=== PATIENT | female | born 1975 | race Caucasian/White ===

== ENCOUNTER → 2019-11-03 | Outpatient (CLI) | payer OTHER, BC ==
[2019-11-03 10:05] VITALS: BP 126/86; PULSE 82; RESP 18; TEMP 97.9
--- NOTE | 2019-11-03 10:57 | P.HPOB ---
History of Present Illness H&P Date: 11/03/19 Chief Complaint: The patient is here for her routine gynecologic exam and ma mmogram. This is a 44-year-old with an LMP of 09/28/2019. The patient is status post tubal ligation. The patient is here to establish with this office. It has been about 5 years since her last pelvic exam. During the past 1 year, she states her periods have become slightly less frequent and are about every 5 weeks. They also have gotten heavier, but shorter. They are typically lasting about 3 days with heavy flow and she can change her protection up to every 1 hour during the heavy times. She has also passed blood clots. Tampons alone typically cannot handle the heavy days. She has experienced some hot flashes for more than one year. Review of Systems The patient's weight has been stable over the last year. She denies respiratory, cardiac, or G.I. problems. Past Medical History Past Medical History: GERD/Reflux Additional Past Medical History / Comment(s): OBESITY. Seasonal ALLERGIES. 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 History of Any Multi-Drug Resistant Organisms: None Reported Past Surgical History: Bariatric Surgery, Section, Cholecystectomy, Hernia Repair, Tubal Ligation Additional Past Surgical History / Comment(s): EXP LAP. Multiple abdominal wall hernia repairs. 3. Gastric bypass surgery. 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 - Past Family History Mother Family Medical History: Cancer Additional Family Medical History / Comment(s): Leukemia. Father Family Medical History: AFIB Brother(s) Family Medical History: Myocardial Infarction ([place]) Medications and Allergies Home Medications Medication Instructions Recorded Confirmed Type Multivitamin with Iron [Daily 1 tab PO DAILY 06/07/15 11/03/19 History Multivitamin with Iron] Omeprazole [PriLOSEC] 10 mg PO DAILY 11/05/16 11/03/19 History Ascorbic Acid [Vitamin C] 500 mg PO DAILY 11/03/19 11/03/19 History Cetirizine HCl [Zyrtec] 10 mg PO DAILY PRN 11/03/19 11/03/19 History Cyanocobalamin [Vitamin B-12] 500 mcg PO DAILY 11/03/19 11/03/19 History Ginkgo Biloba 500 mg PO DAILY 11/03/19 11/03/19 History Loratadine [Claritin] 10 mg PO DAILY PRN 11/03/19 11/03/19 History Magnesium 200 mg PO DAILY 11/03/19 11/03/19 History Allergies Allergy/AdvReac Type Severity Reaction Status Date / Time Sulfa (Sulfonamide Allergy Swelling Verified 11/03/19 10:05 Antibiotics) Exam Vital Signs Temp Pulse Resp BP Pulse Ox 11/03/19 10:02 97.9 F 82 18 126/86 100 Intake and Output 11/02/19 11/03/19 11/03/19 22:59 06:59 14:59 Other: Weight 133.356 kg Height 5 feet 9 inches, weight 294 pounds, BMI 43.4. This is a well-developed well-nourished heavyset white female who is alert and oriented times 3 in no acute distress. HEENT: Within normal limits. NECK: Supple without mass or thyromegaly. CHEST AND LUNGS: Clear to auscultation. HEART: Regular rate and rhythm. BREASTS: Are without mass or discharge. AXILLARY EXAM: Negative for adenopathy. BACK: Negative for CVA tenderness. ABDOMEN: Soft, obese, nontender, without palpable masses. PELVIC EXAM: Normal external genitalia. Cervix and vagina appear normal. There is no unusual discharge. There is no evidence of prolapse. The uterus is midposition, nongravid size and nontender. There are no palpable adnexal masses or tenderness. Bimanual examination is somewhat limited secondary to her size. RECTAL EXAM: negative for mass or tenderness and is negative for occult blood. EXTREMITIES: Nontender. IMPRESSION: 1. 44-year-old female with mild hypermenorrhea and normal gynecologic exam. 2. Previous tubal sterilization. PLAN: 1. Pap smear was performed. 2. Self breast awareness was discussed with the patient. 3. Screening mammogram will be done today. 4. The patient will keep a menstrual calendar. We will have a trial of meclofenamate sodium 100 mg by mouth 3 times a day when necessary for heavy menstrual flow up to 6 days per cycle. The electronic prescription will be sent to [facility] in [place]. 5. If she is not having significant improvement, she was instructed to call and we will consider other options including endometrial ablation. 6. She was advised to return in one year for her annual well woman exam and as needed.
--- NOTE | 2019-11-05 13:47 | MM ---
Reason for exam: screening (asymptomatic). Last mammogram was performed 5 years and 9 months ago. Physical Findings: A clinical breast exam by your physician is recommended on an annual basis and results should be correlated with mammographic findings. MG Screening Mammo w CAD Bilateral CC and MLO view(s) were taken. Prior study comparison: January 18, 2014, bilateral digital screening mammo w/CAD. March 31, 2002, bilateral diagnostic mammogram. The breast tissue is almost entirely fat. Stable benign calcifications. There is no discrete abnormality. No significant changes when compared with prior studies. ASSESSMENT: Benign, BI-RAD 2 RECOMMENDATION: Routine screening mammogram of both breasts in 1 year.
== END | disposition home or self-care (01) ==
LOC: WWCWWP 09:48
PROVIDERS: ATTEND Obstetrics & Gynecology
DX: Z12.31 Encounter for screening mammogram for malignant neoplasm of breast (principal)
CPT/HCPCS: 77067

== ENCOUNTER → 2019-12-01 | Outpatient (CLI) | payer BC ==
--- NOTE | 2019-12-01 17:36 | CT ---
EXAMINATION TYPE: CT lower extremity LT wo con DATE OF EXAM: 12/01/2019 COMPARISON: None HISTORY: Left sided Anterior foot pain without trauma CT DLP: 315.7 mGycm Automated exposure control for dose reduction was used. The graft technique: 3-D reconstructed images a separate computer are presented by the technologist. 2-D reconstructed images in the coronal and s agittal plane are presented. Axial plane images were obtained at 2 mm thick sections. Bone and soft t issue windows are reviewed. FINDINGS: No acute fractures are evident. No suspicious areas to suggest fracture evident. Plantar and Achilles tendon calcaneal heel spurs are noted. No soft tissue abnormalities evident. There may be some degen erative change near the hindfoot joint spaces. IMPRESSION: 1. NO SUSPICIOUS ACUTE OSSEOUS ABNORMALITY. 2. THERE MAY BE SOME MILD DEGENERATIVE JOINT CHANGES WITHIN THE HINDFOOT JOINT SPACES
== END | disposition home or self-care (01) ==
LOC: RADCTMAIN 12:22
PROVIDERS: ATTEND Podiatrist Foot & Ankle Surgery
DX: S92.202 Fracture of unspecified tarsal bone(s) of left foot (principal)

== ENCOUNTER → 2020-12-07 | Outpatient (CLI) | payer BC ==
[2020-12-07 11:08] VITALS: BP 105/68; PULSE 110; RESP 18; TEMP 98.4
--- NOTE | 2020-12-07 12:57 | P.HPOB ---
History of Present Illness H&P Date: 12/07/20 Chief Complaint: The patient is here for her routine gynecologic exam and ma mmogram. This is a 45-year-old with an LMP of 11/12/2020. The patient is status post tubal ligation. She has been treated for menorrhagia with meclofenamate sodium. She used this during her menstrual periods over the past year with no significant improvement. Menstrual periods are typically lasting 7-8 days with 4-5 days of heavier flow. On the heavy days she has to change her pad about every 2 hours. She sometimes passes large blood clots the size of her palm. She often passes large clots into the toilet. She does have mild cramping with her menstrual periods and this is not a major problem for her. She also has been experiencing vulvar irritation especially after her menstrual periods and excess may be related to the pads that she has to use and change frequently. She denies any significant discharge or odor. She wonders if this is related to some type of yeast infection. Review of Systems The patient has lost 34 pounds over the last year. She denies respiratory, cardiac, or G.I. problems. Past Medical History Past Medical History: GERD/Reflux Additional Past Medical History / Comment(s): OBESITY. Seasonal ALLERGIES. 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 History of Any Multi-Drug Resistant Organisms: None Reported Past Surgical History: Bariatric Surgery, Section, Cholecystectomy, Hernia Repair, Tubal Ligation Additional Past Surgical History / Comment(s): EXP LAP. Multiple abdominal wall hernia repairs. 3. Gastric bypass surgery. Past Anesthesia/Blood Transfusion Reactions: No Reported Reaction Past Psychological History: No Psychological Hx Reported Smoking Status: Former smoker Past Alcohol Use History: Occasional (0-1 month) Additional Past Alcohol Use History / Comment(s): Started smoking at age 10, quit at age 32 Past Drug Use History: None Reported Additional History: She has been since 2003. 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 - Past Family History Mother Family Medical History: Cancer Additional Family Medical History / Comment(s): Leukemia. Father Family Medical History: AFIB Brother(s) Family Medical History: Myocardial Infarction ([place]) Medications and Allergies Home Medications Medication Instructions Recorded Confirmed Type Multivitamin with Iron [Daily 1 tab PO DAILY 06/07/15 12/07/20 History Multivitamin with Iron] Omeprazole [PriLOSEC] 10 mg PO DAILY PRN 11/05/16 12/07/20 History Ascorbic Acid [Vitamin C] 500 mg PO DAILY 11/03/19 12/07/20 History Cetirizine HCl [Zyrtec] 10 mg PO DAILY PRN 11/03/19 12/07/20 History Cyanocobalamin [Vitamin B-12] 500 mcg PO DAILY 11/03/19 12/07/20 History Ginkgo Biloba 500 mg PO DAILY 11/03/19 12/07/20 History Loratadine [Claritin] 10 mg PO DAILY PRN 11/03/19 12/07/20 History Magnesium 200 mg PO DAILY 11/03/19 12/07/20 History Meclofenamate Sodium 100 mg PO TID PRN #30 capsule 11/03/19 12/07/20 Rx Phentermine HCl 37.5 mg PO DAILY 12/07/20 12/07/20 History Allergies Allergy/AdvReac Type Severity Reaction Status Date / Time Sulfa (Sulfonamide Allergy Swelling Verified 12/07/20 11:01 Antibiotics) Exam Vital Signs Temp Pulse Resp BP Pulse Ox 12/07/20 11:04 98.4 F 110 H 18 105/68 95 Intake and Output 12/06/20 12/07/20 12/07/20 22:59 06:59 14:59 Other: Weight 117.934 kg Height 5 feet 9 inches, weight 260 pounds, BMI 38.4. This is a well-developed well-nourished heavyset white female who is alert and oriented times 3 in no acute distress. HEENT: Within normal limits. NECK: Supple without mass or thyromegaly. CHEST AND LUNGS: Clear to auscultation. HEART: Regular rate and rhythm. BREASTS: Are without mass or discharge. AXILLARY EXAM: Negative for adenopathy. BACK: Negative for CVA tenderness. ABDOMEN: Soft, nontender, without palpable masses. PELVIC EXAM: External genitalia reveals mild generalized erythema without excoriation or ulceration. There are no focal lesions. Cervix and vagina appear normal but there is small whitish thick discharge without odor. There is no evidence of prolapse. The uterus is midposition, nongravid size and nontender. There are no palpable adnexal masses or tenderness. The bimanual examination is somewhat limited secondary to her size. RECTAL EXAM: negative for mass or tenderness and is negative for occult blood. EXTREMITIES: Nontender. IMPRESSION: 1. 45-year-old female who is status post tubal ligation who is experiencing menorrhagia without significant improvement with meclofenamate sodium. 2. Generalized vulvar erythema consistent with nonspecific vulvitis with small amount of thick vaginal discharge. Differential diagnosis will include Erinn vaginitis, bacterial vaginosis and nonspecific vulvar dermatitis. Physiologic discharge is also possible. PLAN: 1. Pap smear was deferred since she had a normal one on 11/03/2019. 2. Self breast awareness was discussed with the patient. 3. Screening mammogram will be done today. 4. Affirm vaginitis panel was obtained from the vagina to check for Erinn, Gardnerella, and Trichomonas. If this is negative consider treatment with Kenalog cream to the external genitalia when necessary. 5. We have had a long discussion regarding her menorrhagia and we have also discussed possible options including oral contraception, Mirena IUD and endometrial ablation. Information on endometrial ablation in the form of the ACOG FAQ handout was given to the patient. Pelvic ultrasound was recommended and the order slip was given to the patient for this. If this is unremarkable she will let me know if she would like to proceed with a referral for an endometrial ablation. 6. She was advised to return in one year for her annual well woman exam and as needed.
--- NOTE | 2020-12-08 09:51 | P.PN ---
Progress Note - Text Progress Note Date: 12/08/20 I have called the patient to notify her of the negative Affirm vaginitis panel results that was negative for yesi, gardnerella, and trichomonas on 12/07/20. For the vulvar irritation I will prescribe Kenalog 0.1% cream BID prn, 30g, 1 refill. The electronic prescription will be sent to [facility] in [place]. She is scheduled for a pelvic US.
--- NOTE | 2020-12-08 14:10 | MM ---
Reason for exam: screening (asymptomatic). Last mammogram was performed 1 year and 1 month ago. Physical Findings: A clinical breast exam by your physician is recommended on an annual basis and results should be correlated with mammographic findings. MG Screening Mammo w CAD Bilateral CC and MLO view(s) were taken. Prior study comparison: November 03, 2019, bilateral MG screening mammo w CAD. There are scattered fibroglandular densities. No significant changes when compared with prior studies. ASSESSMENT: Negative, BI-RAD 1 RECOMMENDATION: Routine screening mammogram of both breasts in 1 year.
== END | disposition home or self-care (01) ==
LOC: WWCWWP 10:49
PROVIDERS: ATTEND Obstetrics & Gynecology
DX: Z12.31 Encounter for screening mammogram for malignant neoplasm of breast (principal)
CPT/HCPCS: 77067

== ENCOUNTER → 2020-12-26 | Outpatient (CLI) | payer BC ==
--- NOTE | 2020-12-26 10:05 | US ---
EXAMINATION TYPE: US pelvis complete transvag DATE OF EXAM: 12/26/2020 COMPARISON: NONE CLINICAL HISTORY: N92.0 MENORRHAGIA, large body habitus TECHNIQUE: Transvaginal (TV) and Transabdominal (TA) Date of LMP: 12-13-20 EXAM MEASUREMENTS: Uterus: 11.4 x 4.2 x 5.9 cm Endometrial Stripe: 1.1 cm Right Ovary: not visualized Left Ovary: 3.2 x 2.8 x 2.3 cm 1. Uterus: Anteverted, measures large 2. Endometrium: wnl 3. Right Ovary: Obscured by overlying bowel gas 4. Left Ovary: dominant follicle measuring 2.3 x 2.0 x 2.0cm 5. Bilateral Adnexa: wnl 6. Posterior cul-de-sac: wnl IMPRESSION: 1. Enlarged uterus of uncertain etiology. No distinct mass appreciated. 2. Dominant follicle left ovary. This likely reflects a functional ovarian cyst. This could be confir med with follow-up study in 6 weeks.
--- NOTE | 2020-12-27 09:19 | P.PN ---
Progress Note - Text Progress Note Date: 12/27/20 OUTPATIENT FOLLOW-UP NOTE TEST(S)/RESULTS: Pelvic ultrasound done on 12/26/2020 shows a mildly enlarged uterus of uncertain etiology. No distinct mass is appreciated in the uterus. There is a follicular-type left ovarian cyst measuring 2.3 x 2.0 x 2.0 cm. METHOD OF NOTIFICATION: The patient was notified by phone. PATIENT COMMENTS: The patient states she does have some cramps with her menstrual periods. She would like to proceed with endometrial ablation. DIAGNOSIS: Menorrhagia with mildly enlarged uterus with no discrete uterine fibroids by ultrasound. Left ovarian follicular-type cyst measuring 2.3 cm. DISCUSSION: She would like to proceed with endometrial ablation. She understands that failure rates do increase with enlarged and uterus. The uterine dimensions seem mildly enlarged. She will be referred to Dr. Callahan for possible endometrial ablation. I will let patient discuss this with Dr. Callahan to determine if an endometrial ablation will be the best approach. We will plan on repeating the pelvic ultrasound an approximate 6-8 weeks and I have discussed this with the patient. The order slip will be mailed to the patient. PLAN: Referral to Dr. Callahan for possible endometrial ablation. Repeat ultrasound in 6-8 weeks.
== END | disposition home or self-care (01) ==
LOC: RADUSWWP 08:51
PROVIDERS: ATTEND Obstetrics & Gynecology
DX: N85.2 Hypertrophy of uterus (principal)
CPT/HCPCS: 76830; 76856

== ENCOUNTER 2021-02-13 07:48 | Day surgery (SDC) | payer BC ==
[2021-02-10 09:08] VITALS: BMI 38.2
[~2021-02-13 07:48] MED LIST: DEXAMETHASONE SOD PHOSPHATE 4 MG/ML 1 ML VIAL IV ONE; HYDROmorphone 0.5 MG/0.5 ML SYRINGE IVP PRN; LACTATED RINGERS 1,000 ML IV SCH; ONDANSETRON 4 MG/2 ML VIAL IVP ONE; Pre Op ABX Message 1 EACH MISC MISCELLANE ONE
[2021-02-13] MEDS ORDERED: LIDOCAINE 1% (10MG/ML) FOR IV START INTRADERMA ONE (08:38)
[2021-02-13 08:44] LABS: Basophils % (A) 1 %; Eosinophils # (A) 0.1 k/uL (0-0.7); Eosinophils % (A) 3 %; HCT 38.4 % (34.0-46.0); HGB 12.7 gm/dL (11.4-16.0); Lymphocytes # (A) 1.7 k/uL (1.0-4.8); Lymphocytes % (A) 37 %; MCH 29.2 pg (25.0-35.0); MCHC 32.9 g/dL (31.0-37.0); MCV 88.5 fL (80.0-100.0); Mean Platelet Volume 6.8; Monocytes # (A) 0.2 k/uL (0-1.0); Monocytes % (A) 4 %; Neutrophils # (A) 2.6 k/uL (1.3-7.7); Neutrophils % (A) 55 %; Platelet Count 370 k/uL (150-450); RBC 4.34 m/uL (3.80-5.40); RDW 13.1 % (11.5-15.5); WBC 4.7 k/uL (3.8-10.6)
[2021-02-13] MEDS ORDERED: PROPOFOL 10 MG/ML 20 ML VIAL IV ONE (08:52)
[2021-02-13] MEDS ORDERED: KETOROLAC 15 MG/ML 1 ML VIAL ONE (08:52)
[2021-02-13] MEDS ORDERED: fentaNYL (PF) 50 MCG/ML 2 ML AMP ONE (08:52)
[2021-02-13] MEDS ORDERED: LIDOCAINE 1% INJ 10MG/ML (20 ML MDV) ONE (08:52)
[2021-02-13] MEDS ORDERED: MIDAZOLAM 2 MG/2 ML VIAL ONE (08:52)
[2021-02-13] MEDS ORDERED: SILVER NITRATE APPLICATOR 1 EACH STICK..EA. TOPICAL ONE (09:24)
--- NOTE | 2021-02-13 09:36 | P.OP ---
Date of Procedure: 02/13/21 Preoperative Diagnosis: Menorrhagia, dysmenorrhea Postoperative Diagnosis: Same, essentially normal-appearing endometrial cavity Procedure(s) Performed: Hysteroscopy, NovaSure endometrial ablation Surgeon: Chelsie Callahan Estimated Blood Loss (ml): 10 IV fluids (ml): 600 Urine output (ml): 200 Pathology: none sent Condition: stable Disposition: PACU Description of Procedure: Patient is brought to the operating suite where a general anesthetic is administered without difficulty. Urine hCG is negative. The appropriate timeout is performed to assure proper patient and procedural identification. Examination under anesthesia reveals a small anteverted uterus, negative adnexa bilaterally. Bladder is drained for 200 mL of clear yellow urine. The cervix, perineal body, and lower abdomen are all prepped and draped in usual sterile fashion. Weighted speculum was placed into the vagina. Anterior lip of the cervix is grasped with a double-tooth tenaculum. Uterus sounds to a depth of 9 cm in the anteverted position. Cervix is gently and systematically dilated using Hanks dilators. Hysteroscope was introduced and the cavity is distended with sterile saline. The cavity appears normal to inspection, no polyps fibroids or defects. Hysteroscope was removed. NovaSure wand is then placed and seated. A length of 6.0 cm, width of 3.0 cm is chosen. The machine is properly enabled. For 54 seconds and a power of 99 W the procedure is carried out. When completed, the wand is reduced and removed. The hysteroscope was once again placed and the cavity is noted to be uniformly blanched. All instrumentation is removed from the vagina. Cervix is clean and dry. All sponge needle and enhancement counts are correct. Patient is given Toradol prior to leaving the operative suite. She is taken to recovery room in very good condition with a blood pressure of 110/67, pulse 69, 100% O2 saturation. Patient will follow-up with me in the office in 2 weeks. Written instructions are provided.
[2021-02-13 09:41] VITALS: TEMP 97.8
[2021-02-13 10:06] VITALS: RESP 16
[2021-02-13 10:33] VITALS: BP 102/49; PULSE 81
== END 2021-02-13 10:59 | disposition home or self-care (01) ==
LOC: OR 07:48
PROVIDERS: ATTEND Obstetrics & Gynecology
DX: N92.0 Excessive and frequent menstruation with regular cycle (principal); N94.6 Dysmenorrhea, unspecified; K21.9 Gastro-esophageal reflux disease without esophagitis; E66.9 Obesity, unspecified; J45.909 Unspecified asthma, uncomplicated; Z98.84 Bariatric surgery status; Z79.899 Other long term (current) drug therapy; Z88.2 Allergy status to sulfonamides; Z82.49 Family history of ischemic heart disease and other diseases of the circulatory system; Z80.6 Family history of leukemia; Z80.9 Family history of malignant neoplasm, unspecified; Z87.891 Personal history of nicotine dependence; Z68.39 Body mass index [BMI] 39.0-39.9, adult
CPT/HCPCS: 81025; 85025; 58563; J2250; J1100; J2405; J2001; J3010; J1885; J2704

== ENCOUNTER → 2021-03-06 | Outpatient (CLI) | payer BC | END | disposition home or self-care (01) | LOC: LABWHC1 09:28 | PROVIDERS: ATTEND Dermatology | DX: L30.9 Dermatitis, unspecified (principal) | CPT/HCPCS: 36415; 86038 ==

== ENCOUNTER → 2024-05-13 | Outpatient (CLI) | payer OTHER ==
[2024-05-13 08:55] VITALS: BP 136/89; PULSE 79; RESP 17; TEMP 98.4
--- NOTE | 2024-05-13 09:34 | P.HPOB ---
History of Present Illness H&P Date: 05/13/24 Chief Complaint: The patient is here for her routine gynecologic exam and ma mmogram. This is a 49-year-old with an LMP of of 04/12/2024. The patient is status post tubal ligation. She is here to reestablish with this office. Since she was last seen in November 2020, she underwent an endometrial ablation by Dr. Callahan later in 2020. She states her menstrual periods have been slightly shorter and she still passes blood clots, but not as large as prior to the ablation. Menstrual periods are still regular every month lasting 4 to 5 days and she does still have body aches with her menstrual periods. She also had a pelvic ultrasound in 2020 which showed a 2.3 cm left ovarian cyst and a follow- up ultrasound was recommended in 6-8 weeks and this was not done. Review of Systems She has gained about 11 pounds over the past 3 and half years. She denies respiratory, cardiac, or GI problems. Past Medical History Past Medical History: GERD/Reflux Additional Past Medical History / Comment(s): Environmental allergies. 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 History of Any Multi-Drug Resistant Organisms: None Reported Past Surgical History: Appendectomy, Bariatric Surgery, Section, Cholecystectomy, Hernia Repair, Tubal Ligation Additional Past Surgical History / Comment(s): EXP LAP, tequila-en-y bariatric surgery. section x 3. Multiple abdominal wall hernia repairs. 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 - Past Family History Mother Family Medical History: Cancer Additional Family Medical History / Comment(s): Leukemia. Father Family Medical History: AFIB Brother(s) Family Medical History: Myocardial Infarction ([place]) Medications and Allergies Home Medications Medication Instructions Recorded Confirmed Type Loratadine [Claritin] 10 mg PO DAILY PRN 11/03/19 02/13/21 History Magnesium 200 mg PO DAILY 11/03/19 02/13/21 History Naltrexone HCl/Bupropion HCl 1 tab PO DIRECTED 05/13/24 05/13/24 History [Contrave ER 8-90 mg Tablet] Allergies Allergy/AdvReac Type Severity Reaction Status Date / Time Sulfa (Sulfonamide Allergy Swelling Verified 05/13/24 08:48 Antibiotics) Exam Vital Signs Temp Pulse Resp BP Pulse Ox 05/13/24 08:52 98.4 F 79 17 136/89 99 Intake and Output 05/12/24 05/13/24 05/13/24 22:59 06:59 14:59 Other: Weight 122.924 kg Height 5 feet 9 inches, weight 271 pounds, BMI 40.0. This is a well-developed well-nourished heavyset white female who is alert and oriented times 3 in no acute distress. HEENT: Within normal limits. NECK: Supple without mass or thyromegaly. CHEST AND LUNGS: Clear to auscultation. HEART: Regular rate and rhythm. BREASTS: Are without mass or discharge. AXILLARY EXAM: Negative for adenopathy. BACK: Negative for CVA tenderness. ABDOMEN: Soft, nontender, without palpable masses. PELVIC EXAM: Normal external genitalia. Cervix and vagina appear normal. There is no unusual discharge. There is no evidence of prolapse. The uterus is midposition, nongravid size and nontender. There are no palpable adnexal masses or tenderness. Bimanual examination is somewhat limited secondary to her size. RECTAL EXAM: negative for mass or tenderness and is negative for occult blood. EXTREMITIES: Nontender. IMPRESSION: 1. 49-year-old premenopausal female who is status post tubal ligation and endometrial ablation, with normal gynecologic exam. 2. History of left ovarian cyst without follow-up. 3. Mild dysmenorrhea without significant physical findings on exam today. PLAN: 1. Pap smear cotest was performed. 2. Self breast awareness was discussed with the patient. We have also discussed symptoms associated with inflammatory breast cancer. 3. Screening mammogram will be done today. 4. Because of her history of an ovarian cyst with out follow-up, and since the bimanual examination is somewhat limited secondary to her size, we will plan on having her get a pelvic ultrasound to reevaluate the ovarian cyst. The order slip was given to the patient for this. 5. Osteoporosis prevention was discussed. I have stressed the importance of adequate calcium, vitamin D and regular exercise. Recommended amounts of calcium and vitamin D were also discussed. 6. [id number] NSAIDs or Tylenol as needed for menstrual pains which she has been periodically using. 6. She was advised to return in one year for her annual well woman exam as needed.
== END ==
LOC: WWCWWP 08:35
PROVIDERS: ATTEND Obstetrics & Gynecology
DX: Z12.31 Encounter for screening mammogram for malignant neoplasm of breast (principal); N94.6 Dysmenorrhea, unspecified; Z78.0 Asymptomatic menopausal state; Z98.51 Tubal ligation status; Z87.42 Personal history of other diseases of the female genital tract; Z87.891 Personal history of nicotine dependence; Z88.2 Allergy status to sulfonamides
CPT/HCPCS: 77067

== ENCOUNTER → 2024-05-15 | Outpatient (CLI) | payer OTHER ==
--- NOTE | 2024-05-15 11:33 | US ---
EXAMINATION TYPE: US pelvis complete transvag DATE OF EXAM: 05/15/2024 COMPARISON: NONE CLINICAL INDICATION: Female, 49 years old with history of N83.0 OVARIAN CYST; History of ovarian cyst . TECHNIQUE: Transvaginal (TV) and Transabdominal (TA) . Transabdominal sonographic images of the pel vis were acquired. Transvaginal sonographic images were medically necessary to better assess the fol lowing anatomy: per order Date of LMP: 04/12/24 EXAM MEASUREMENTS: Uterus: 8.3 x 4.9 x 5.4 cm Endometrial Stripe: 0.5 cm Right Ovary: 2.8 x 2.0 x 2.1 cm Left Ovary: 3.6 x 2.2 x 2.5 cm 1. Uterus: Anteverted heterogeneous 2. Endometrium: wnl 3. Right Ovary: follicles noted 4. Left Ovary: follicles noted 5. Bilateral Adnexa: wnl 6. Posterior cul-de-sac: wnl IMPRESSION: Unremarkable pelvic ultrasound. No ovarian masses or cysts.
== END | disposition home or self-care (01) ==
LOC: RADUSWWP 08:10
PROVIDERS: ATTEND Obstetrics & Gynecology
DX: N83.02 Follicular cyst of left ovary (principal)
CPT/HCPCS: 76830; 76856

== ENCOUNTER → 2025-04-06 | Outpatient (CLI) | payer OTHER ==
--- NOTE | 2025-04-06 12:06 | P.PN ---
Progress Note - Text Progress Note Date: 04/06/25 Upon reviewing this patient's history, I noticed that we did not have follow-up from Dr. Ferraro. She was sent to Dr. Ferraro after she had an abnormal Pap smear showing ASCUS with positive high-risk HPV testing with HPV type18 on 05/13/24. We requested the patient's follow-up notes from Dr. Ferraro's office. I received a call from Dr. Ferraro today on 04/06/2025 indicating that her colposcopic examination done last year showed moderate cervical dysplasia, [id number]. He states that there was not appropriate follow-up and he intends to perform a LEEP procedure. His office has not made contact with the patient for this. I called the patient today on 04/06/[address] Ferraro's office did leave a message for her to call, but she has not yet done this. She states she did not get the results from her colposcopy last year and she states she probably should have called him to get the results. I have stressed the importance of following up with Dr. Ferraro because of the abnormal findings. She understands the findings are considered precancerous and should be handled appropriately. She states she will call his office after getting off of the phone with me. We will await additional results from Dr. Ferraro's office.
== END ==
LOC: WWCWWP 10:35
PROVIDERS: ATTEND Obstetrics & Gynecology
DX: N87.1 Moderate cervical dysplasia (principal); Z88.2 Allergy status to sulfonamides